=== PATIENT | male | born 1980 | race Caucasian/White ===

== ENCOUNTER 2024-10-19 08:56 | Emergency (ER) | payer OTHER, SELFPAY ==
--- NOTE | 2024-10-19 | XR_ITS ---
MRI abdomen, without contrast. MRCP Date and time of exam: October 19, 2024 1429 hrs. Indications: Onset right upper abdominal pain today, severe Technique: Multiple axial and coronal images of the abdomen have been obtained with the Siemens 1.5T MRI scanner. Images obtained included T1 weighted transverse images, T2-weighted transverse images, T2-weighted transverse images fat-suppressed, T2 weighted haste fat suppressed transverse images, T1 weighted images, in and out of phase images, T2-weighted coronal images, breath hold, T2 weighted haze coronal images as well as T2 weighted coronal thick slab images, MRCP. Findings: Contracted gallbladder Gallbladder wall edema Cholelithiasis Normal common hepatic common bile duct No pancreatitis Negative for dilated pancreatic duct Spleen is not enlarged No ascites Impression: Acute calculus cholecystitis
[2024-10-19 08:59] VITALS: BMI 46.0
[2024-10-19 09:14] VITALS: BP 155/100; PULSE 86; RESP 18; TEMP 36.8; O2SAT 94
--- NOTE | 2024-10-19 09:21 | EKG_ITS ---
[facility] Test Date: 2024-10-19 Pat Name: LAURA MURRIETA Department: Room: - Gender: Male First Sampler: : 1980 Requested By: Cristopher Fletcher (RADHA) Order Number: [id number] Reading MD: Cristopher Fletcher ([employer]TERN[employer]) Measurements Intervals [place] Rate: 82 P: 25 [place]: 155 QRS: 34 QRSD: 86 T: 45 QT: 399 QTc: 467 Interpretive Statements SINUS RHYTHM No previous ECG available for comparison /[id number]/[email or web address]/[id number]
--- NOTE | 2024-10-19 09:21 | XR_ITS ---
Examination: PA lateral chest 2 views Technique: Upright AP lateral chest 2 views Exam date and time: October 19, 2024 0938 hrs. Indications: Upper abdominal pain right-sided chest pain today Findings: No significant cardiac enlargement No pneumonia or pulmonary edema The osseous structures are intact Impression: No active disease
--- NOTE | 2024-10-19 09:36 | XR_ITS ---
Examination: CT abdomen and pelvis without contrast. Coronal 3-D reconstructions. Sagittal 2-D reconstructions. Date and time of exam:October 19, 2024 0942 hrs. Indications: Onset right-sided abdominal pain with nausea vomiting beginning 4:30 AM this morning CTDI: vol (mGy): 50.2 DLP: (mGycm): 177 Technique: Axial images of the abdomen have been obtained, 3 mm slice thickness Intravenous contrast material has not been administered. Low dose protocols were performed. One or more of the following dose reduction techniques were used; automated exposure control, adjustment of the mA and/or KV according to patient size, use of iterative reconstruction technique. Findings: No focal liver or splenic lesions Cholelithiasis No pancreatic or adrenal mass Solid appearing mass posterior margin left kidney, 24 mm, axial image 102 Perinephric stranding 1 mm upper pole right renal calculus coronal image 1:30 Aorta normal size No bowel obstruction Normal appendix No diverticulitis 12 mm fat-containing umbilical hernia Normal seminal vesicles No prostatomegaly Contracted urinary bladder Tiny fat-containing inguinal hernias The osseous structures are intact Impression: Cholelithiasis. 1 mm upper pole right renal calculus, no hydronephrosis Recommend renal sonography to exclude 24 mm solid mass posterior left kidney Normal appendix
--- NOTE | 2024-10-19 09:36 | XR_ITS ---
Examination: Abdomen sonogram, Limited Date and time of exam: October 19, 2024 1036 hrs. Indications: Right upper abdominal pain nausea vomiting beginning 5 hours ago Technique: Real-time lockhart scale transabdominal sonographic images of the upper abdomen obtained. Findings: 18 mm gallstone Gallbladder wall 0.38 cm no edema Common bile duct weight 4 cm Pancreatic head 3.9 cm Liver 18.2 cm fatty infiltration no focal liver lesions Normal hepatopedal portal venous flow Patent IVC Impression: Cholelithiasis, borderline thickening gallbladder wall, clinical correlation advised, consider HIDA scan or MRCP follow-up as clinically warranted Pancreatic head does not appear prominent on the CT examination today Mild hepatomegaly fatty infiltration
--- NOTE | 2024-10-19 09:36 | PD.EDRME ---
Rapid Medical Screening Exam RME Arrival date/time: 10/19/24 08:56 44-year-old male presents emergency department complaint of abdominal pain Chief Complaint: Abdominal Pain Time Seen by Provider: 10/19/24 09:17 Vital signs: Vital Signs Temperature 98.2 F 10/19/24 09:14 Pulse Rate 86 10/19/24 09:14 Respiratory Rate 18 10/19/24 09:14 Blood Pressure 155/100 H 10/19/24 09:14 Pulse Oximetry (%) 94 L 10/19/24 09:14 Oxygen Delivery Method Room Air 10/19/24 09:14
[2024-10-19 09:44] LABS: Basophils # (Auto) 0.1 Thou/mm3 (0.0-0.2); Basophils % (Auto) 0 % (0-2.5); Eosinophils # (Auto) 0.1 Thou/mm3 (0.0-0.5); Eosinophils % (Auto) 0 % (0-10); Hematocrit 43.4 % (41.0-53.0); Hemoglobin 14.9 g/dL (13.5-16.0); Immature Granulocytes % (Auto) 0 % (0-0); Immature Granulocytes Auto 0.04 Thou/mm3 (0.00-0.00); Lymphocytes % (Auto) 15 % (10-50); Mean Corpuscular HGB Conc 34.3 g/dl (31.0-37.0); Mean Corpuscular Hemoglobin 30.3 pg (25.0-35.0); Mean Corpuscular Volume 88 fL (80-100); Monocytes # (Auto) 0.6 Thou/mm3 (0.0-0.8); Monocytes % (Auto) 5 % (0-12); Neutrophils # (Auto) 10.6 Thou/mm3 (1.8-7.7); Neutrophils % (Auto) 79 % (37-80); Nucleated Red Blood Cell % 0 /100 WBC (0); Platelet Count 306 Thou/mm3 (140-440); RDW Standard Deviation 39.8 fL (35.1-43.9); Red Blood Count 4.91 Miln/mm3 (4.50-5.90); White Blood Count 13.3 Thou/mm3 (3.8-10.6)
[2024-10-19] MEDS: METOCLOPRAMIDE 5 MG TABLET 10 MG PO (09:54)
[2024-10-19] MEDS: FAMOTIDINE 20 MG TABLET 40 MG PO (09:55)
[2024-10-19] MEDS: ACETAMINOPHEN 500 MG TABLET 1000 MG PO (09:56)
[2024-10-19 10:05] LABS: Alanine Aminotransferase 38 U/L (10-49); Albumin, Serum 4.9 gm/dL (3.5-5.0); Albumin/Globulin Ratio 1.6 (1.2-2.2); Alkaline Phosphatase 98 U/L (46-116); Anion Gap 8 (7-16); Aspartate Amino Transferase 24 U/L (0-34); BUN/Creatinine Ratio 13 Ratio (12-20); Blood Urea Nitrogen 13 mg/dL (9-23); Calcium 10.5 mg/dL (8.3-10.6); Calcium (Corrected) 10.5 mg/dL (8.5-10.1); Carbon Dioxide 25.8 mMol/L (20.0-31.0); Chloride 107 mMol/L (98-107); Estimated Creatinine Clearance 138.6 mL/min (>60); Globulin 3.1 gm/dL (2.3-3.5); Glucose 112 mg/dL (74-106); Lipase 32 U/L (12-53); Osmolality,Calculated 282 (275-295); Potassium 4.9 mMol/L (3.4-5.1); Sodium 141 mMol/L (136-145); Troponin I < 0.020 ng/mL (0.0-0.045); eGFR > 60 See Note
[2024-10-19 10:06] LABS: B-Type Natriuretic Peptide < 20 pg/mL (0-100)
[2024-10-19 10:30] LABS: Collection Type, Urine Clean Catch; Squamous Epithelial Cell,Urine 0 /hpf (0-5)
[2024-10-19 10:46] LABS: Bilirubin,Urine Negative (Negative); Blood,Urine Negative (Negative); Clarity,Urine Clear (Clear/Hazy); Color,Urine Yellow (Lt Yel-Yel); Glucose, Urine Negative (Negative); Ketones,Urine Negative (Negative); Leukocyte Esterase,Urine Negative (Negative); Nitrite,Urine Negative (Negative); Protein,Urine 1+ (Neg - Trace); RBC,Urine 7 /hpf (0-3); Specific Gravity,Urine 1.031 (1.001-1.035); WBC,Urine 2 /hpf (0-5)
[2024-10-19 10:53] LABS: Amphetamine/Methamp Scrn,U Negative (Negative); Barbiturate Screen,Urine Negative (Negative); Benzodiazepines Screen,Urine Negative (Negative); Benzoylecgonine Screen, Ur Negative (Negative); Fentanyl Screen,Urine Negative (Negative); Opiate Screen,Urine Negative (Negative); THC Screen,Urine Negative (Negative)
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
[2024-10-19 14:04] VITALS: BP 136/87; PULSE 85; RESP 18; TEMP 36.7; O2SAT 94
[2024-10-19 17:22] VITALS: BP 154/97; PULSE 76; RESP 20; TEMP 36.9; O2SAT 95
== END 2024-10-19 17:28 | disposition home or self-care (01) ==
PROVIDERS: Nurse Practitioner Primary Care; Emergency Provider Emergency Medicine
DX: K80.62 Calculus of gallbladder and bile duct with acute cholecystitis without obstruction (principal); N20.0 Calculus of kidney; R07.89 Other chest pain
CPT/HCPCS: 36415; 71046; 74176; 76705; 80053; 80307; 81001; 83690; 83880; 84484; 85025; 93005; 99284; S8037; 74181; A9270